=== PATIENT | female | born 1955 | race Caucasian/White ===

== ENCOUNTER 2019-09-06 09:42 | Inpatient (IN) ==
[2019-09-06] MEDS ORDERED: *HR* Midazolam HCl 2 MG/2 ML VIAL ONE (09:46)
[2019-09-06] MEDS ORDERED: *HR* FentaNYL (PF) 100 MCG/2 ML VIAL ONE (09:46)
[2019-09-06] MEDS ORDERED: *HR* Propofol 200 MG/20 ML VIAL IVP ONE (09:47)
[2019-09-06] MEDS ORDERED: *HR* Succinylcholine 200 MG/10 ML VIAL IVP ONE (09:48)
[2019-09-06] MEDS ORDERED: *HR* Rocuronium Bromide 50 MG/5 ML VIAL ONE (09:48)
[2019-09-06] MEDS ORDERED: Ondansetron 4 MG/2 ML VIAL ONE (09:48)
[2019-09-06] MEDS ORDERED: Lidocaine -MPF 2% 2 ML VIAL ONE (09:48)
[2019-09-06] MEDS ORDERED: CeFAZolin Syr 2,000MG/20 ML 2,000 MG/20 ML SYRINGE IVPB ONE (10:01)
[2019-09-06] MEDS ORDERED: Albuterol 2.5 MG/3 ML NEBULIZER IH PRN ×2 (10:01→10:17)
[2019-09-06] MEDS ORDERED: Ringers Solution, Lactated 1,000 ML IVC SCH ×2 (10:15→11:15)
[2019-09-06] MEDS ORDERED: Lidocaine HCL 4 ML Topical Solution (Laryng-O-Jet Kit Sterile Pak) TP ONE (10:22)
[2019-09-06] MEDS ORDERED: *HR* OxyCODONE Immed Rel 5 MG TABLET PO PRN ×2 (11:02→15:13)
[2019-09-06] MEDS ORDERED: Ondansetron 4 MG/2 ML VIAL IVP ONE (11:02)
[2019-09-06] MEDS ORDERED: Acetaminophen IV 1,000 MG/100 ML INFUS..BTL IVPB ONE (11:02)
[2019-09-06] MEDS ORDERED: *HR* HYDROmorphone PF 0.5 MG/0.5 ML SYRINGE IVP PRN (11:02)
[2019-09-06] MEDS ORDERED: Heparin 1,000 UNITS/500 mL 500 ML ONE (11:10)
[2019-09-06] MEDS ORDERED: Vancomycin 1,000 MG, Sodium Chloride IRRigation 1,000 ML IR ONE (11:15)
[2019-09-06] MEDS ORDERED: EPHEDrine 50 MG/ML VIAL ONE (12:18)
[2019-09-06] MEDS ORDERED: Neostigmine Methylsulfate 3 MG/3 ML SYRINGE ONE (13:42)
[2019-09-06] MEDS ORDERED: *HR* Labetalol 20 MG/4 ML SYRINGE IVP PRN (15:13)
[2019-09-06] MEDS ORDERED: *HR* Dextrose 50 % in Water (Syg) 50 ML SYRINGE IVP PRN (15:13)
[2019-09-06] MEDS ORDERED: Ondansetron 4 MG/2 ML VIAL IVP PRN (15:13)
[2019-09-06] MEDS ORDERED: D5% in Water 1,000 ML IVC PRN (15:13)
[2019-09-06] MEDS ORDERED: *HR* OxyCODONE/APAP 5/325 TABLET PO PRN (15:13)
[2019-09-06] MEDS ORDERED: 0.9 % Sodium Chloride 1,000 ML IVC SCH (15:13)
[2019-09-06] MEDS ORDERED: Acetaminophen 325 MG TABLET PO PRN (15:13)
[2019-09-06] MEDS ORDERED: Naloxone 0.4 MG/ML INJ IVP PRN (15:13)
[2019-09-06] MEDS ORDERED: Dextrose Gel 15 GM/37.5 ML TUBE PO PRN ×2 (15:13)
[2019-09-06] MEDS: Insulin LISPRO 300 UNITS/3 ML VIAL SQ SCH (16:30)
[2019-09-06] MEDS: *HR* Metoprolol 5 MG/5 ML VIAL IVP SCH ×2 (16:35→16:49)
[2019-09-06] MEDS: ceFAZolin 2,000 MG in 0.9 % Sodium Chloride 100 ML IVPB SCH (16:36)
[2019-09-06] MEDS ORDERED: Gabapentin 400 MG CAPSULE PO SCH (21:00)
[2019-09-06] MEDS ORDERED: Insulin LISPRO 300 UNITS/3 ML VIAL SQ SCH (21:00)
[2019-09-07] MEDS: *HR* Metoprolol 5 MG/5 ML VIAL IVP SCH ×2 (00:48→06:38)
[2019-09-07] MEDS: ceFAZolin 2,000 MG in 0.9 % Sodium Chloride 100 ML IVPB SCH (00:48)
[2019-09-07 04:32] LABS: BUN/Creatinine Ratio 14 (6-26); Blood Urea Nitrogen 9 mg/dL (8-23); Calcium 8.5 mg/dL (8.6-10.3); Carbon Dioxide 23 mEq/L (23-29); Chloride 110 mEq/L (98-107); Glucose 110 mg/dL (70-105); Osmolality,Calculated 285 (280-300); Potassium 4.6 mEq/L (3.5-5.1); Sodium 138 mEq/L (136-145); eGFR For African Americans > 60 (> 60); eGFR For Non-African Americans > 60 (> 60)
[2019-09-07] MEDS ORDERED: *HR* Heparin 5,000 UNIT/ML VIAL SQ SCH ×2 (06:00)
[2019-09-07 07:47] VITALS: BP 161/89
[2019-09-07 08:34] LABS: Basophils % 0.4 %; Eosinophils # 0.1 K/mcL (0.0-0.6); Eosinophils % 1.7 %; Hematocrit 36.5 % (35.3-44.9); Hemoglobin 11.9 g/dL (11.5-15.4); Immature Granulocytes % 0.3 % (0-4); Lymphocytes # 1.7 K/mcL (0.6-4.6); Lymphocytes % 23.9 %; Mean Corpuscular HGB Conc 32.6 g/dL (31.6-35.5); Mean Corpuscular Hemoglobin 32.2 pg (28.0-33.3); Mean Corpuscular Volume 98.9 fL (83.0-100.0); Mean Platelet Volume 10.2 fL (9.4-12.4); Monocytes # 0.6 K/mcL (0.0-1.3); Neutrophils # 4.6 K/mcL (1.6-8.9); Platelet Count 291 K/mcL (140-400); Red Blood Count 3.69 M/mcL (3.82-4.97); Red Cell Distribution Width 14.3 % (11.5-14.5); Segmented Neutrophils % 64.7 %; White Blood Count 7.1 K/mcL (4.3-11.1)
[2019-09-07] MEDS ORDERED: lisinopriL 5 MG TABLET PO SCH (09:00)
[2019-09-07] MEDS: Insulin LISPRO 300 UNITS/3 ML VIAL SQ SCH (09:19)
== END 2019-09-07 09:57 | disposition home or self-care (01) | DRG 254 ==
LOC: SAMDAY 09:42 → 2NNU 15:05
PROVIDERS: ADMIT Surgery; ATTEND Surgery

== ENCOUNTER 2020-06-19 06:16 | Inpatient (IN) ==
[2020-06-19] MEDS ORDERED: CeFAZolin Syr 2,000MG/20 ML 2,000 MG/20 ML SYRINGE IVPB ONE (06:42)
[2020-06-19] MEDS ORDERED: Ringers Solution, Lactated 1,000 ML IVC SCH (06:45)
[2020-06-19] MEDS ORDERED: *HR* FentaNYL (PF) 100 MCG/2 ML VIAL ONE ×2 (06:55→09:06)
[2020-06-19] MEDS ORDERED: Heparin 1,000 UNITS/500 mL 500 ML ONE (06:55)
[2020-06-19] MEDS ORDERED: *HR* Propofol 200 MG/20 ML VIAL IVP ONE (06:56)
[2020-06-19] MEDS ORDERED: *HR* Rocuronium Bromide 50 MG/5 ML VIAL ONE (06:57)
[2020-06-19] MEDS ORDERED: Dexamethasone 4 MG/ML VIAL ONE (06:57)
[2020-06-19] MEDS ORDERED: Lidocaine -MPF 4% 5 ML AMPUL ONE (06:57)
[2020-06-19] MEDS ORDERED: Lidocaine -MPF 2% 2 ML VIAL ONE (06:57)
[2020-06-19] MEDS ORDERED: Ondansetron 4 MG/2 ML VIAL ONE (06:57)
[2020-06-19] MEDS ORDERED: *HR* Succinylcholine 200 MG/10 ML VIAL IVP ONE (06:57)
[2020-06-19] MEDS ORDERED: *HR* OxyCODONE Immed Rel 5 MG TABLET PO PRN ×2 (07:00→11:56)
[2020-06-19] MEDS ORDERED: *HR* HYDROmorphone 2 MG TABLET PO PRN (07:00)
[2020-06-19] MEDS ORDERED: Famotidine 20 MG/2 ML VIAL IVP ONE (07:00)
[2020-06-19] MEDS ORDERED: Pregabalin 75 MG CAPSULE PO ONE (07:00)
[2020-06-19] MEDS ORDERED: *HR* HYDROmorphone (PF) 1 MG/ML SYRINGE IVP PRN (07:00)
[2020-06-19] MEDS ORDERED: Acetaminophen IV 1,000 MG/100 ML BAG IVPB ONE (07:00)
[2020-06-19] MEDS ORDERED: *HR* Labetalol 20 MG/4 ML SYRINGE IVP PRN ×2 (07:00→11:56)
[2020-06-19] MEDS ORDERED: Heparin 1,000 UNITS/500 mL 1,500 ML ONE (07:07)
[2020-06-19] MEDS ORDERED: *HR* Midazolam HCl 2 MG/2 ML VIAL ONE (07:35)
[2020-06-19] MEDS ORDERED: Vancomycin 1,000 MG, Sodium Chloride IRRigation 1,000 ML IR ONE (07:45)
[2020-06-19] MEDS ORDERED: Vancomycin 1,000 MG VIAL ONE (08:22)
[2020-06-19] MEDS ORDERED: *HR* Phenylephrine 10 MG/ML VIAL ONE (08:36)
[2020-06-19] MEDS ORDERED: EPHEDrine 50 MG/ML VIAL ONE (08:49)
[2020-06-19] MEDS ORDERED: *HR* Heparin 5,000 UNIT/ML VIAL ONE (09:23)
[2020-06-19] MEDS ORDERED: Sugammadex Sodium 200 MG/2 ML VIAL IV ONE (10:29)
[2020-06-19] MEDS ORDERED: *HR* HYDROMORPHONE 2 MG/ML VIAL ONE (10:40)
[2020-06-19] MEDS ORDERED: D5% in Water 1,000 ML IVC PRN (11:56)
[2020-06-19] MEDS ORDERED: Ondansetron 4 MG/2 ML VIAL IVP PRN (11:56)
[2020-06-19] MEDS ORDERED: Dextrose Gel 15 GM/37.5 ML TUBE PO PRN ×2 (11:56)
[2020-06-19] MEDS ORDERED: *HR* OxyCODONE/APAP 5/325 TABLET PO PRN (11:56)
[2020-06-19] MEDS ORDERED: *HR* Dextrose 50 % in Water (Vial) 50 ML VIAL IVP PRN (11:56)
[2020-06-19] MEDS ORDERED: Acetaminophen 325 MG TABLET PO PRN (11:56)
[2020-06-19] MEDS ORDERED: 0.9 % Sodium Chloride 1,000 ML IVC SCH (11:56)
[2020-06-19] MEDS ORDERED: Naloxone 0.4 MG/ML INJ IVP PRN (11:56)
[2020-06-19] MEDS: *HR* Metoprolol 5 MG/5 ML VIAL IVP SCH ×2 (12:58→16:57)
[2020-06-19] MEDS: lisinopriL 5 MG TABLET PO SCH (12:58)
[2020-06-19] MEDS: Insulin LISPRO 300 UNITS/3 ML VIAL SQ SCH ×2 (13:15→16:47)
[2020-06-19] MEDS ORDERED: CeFAZolin 2 GM/120 ML BAG IVPB SCH (16:00)
[2020-06-19] MEDS ORDERED: Gabapentin 400 MG CAPSULE PO SCH (21:00)
[2020-06-19] MEDS ORDERED: Insulin LISPRO 300 UNITS/3 ML VIAL SQ SCH (21:00)
[2020-06-20 00:43] LABS: Basophils % 0.1 %; Eosinophils % 0.1 %; Hematocrit 31.4 % (35.3-44.9); Hemoglobin 10.2 g/dL (11.5-15.4); Immature Granulocytes % 0.3 % (0-4); Lymphocytes # 1.2 K/mcL (0.6-4.6); Lymphocytes % 9.4 %; Mean Corpuscular HGB Conc 32.5 g/dL (31.6-35.5); Mean Corpuscular Hemoglobin 31.5 pg (28.0-33.3); Mean Corpuscular Volume 96.9 fL (83.0-100.0); Mean Platelet Volume 10.2 fL (9.4-12.4); Monocytes # 0.8 K/mcL (0.0-1.3); Monocytes % 6.2 %; Neutrophils # 10.9 K/mcL (1.6-8.9); Platelet Count 312 K/mcL (140-400); Red Blood Count 3.24 M/mcL (3.82-4.97); Red Cell Distribution Width 16.2 % (11.5-14.5); Segmented Neutrophils % 83.9 %
[2020-06-20] MEDS: *HR* Metoprolol 5 MG/5 ML VIAL IVP SCH ×2 (00:47→06:00)
[2020-06-20 00:53] LABS: BUN/Creatinine Ratio 14 (6-26); Blood Urea Nitrogen 9 mg/dL (8-23); Calcium 8.3 mg/dL (8.6-10.3); Carbon Dioxide 24 mEq/L (23-29); Chloride 106 mEq/L (98-107); Glucose 207 mg/dL (70-105); Osmolality,Calculated 287 (280-300); Potassium 4.2 mEq/L (3.5-5.1); Sodium 136 mEq/L (136-145); eGFR For African Americans > 60 (> 60); eGFR For Non-African Americans > 60 (> 60)
[2020-06-20] MEDS ORDERED: *HR* Heparin 5,000 UNIT/ML VIAL SQ SCH ×2 (06:00)
[2020-06-20] MEDS: lisinopriL 5 MG TABLET PO SCH (08:23)
[2020-06-20] MEDS: Insulin LISPRO 300 UNITS/3 ML VIAL SQ SCH (08:23)
[2020-06-20 08:37] VITALS: BP 107/80
== END 2020-06-20 11:18 | disposition home or self-care (01) | DRG 254 ==
LOC: SAMDAY 06:16 → 2NNU 11:56
PROVIDERS: ADMIT Surgery; ATTEND Surgery

== ENCOUNTER 2021-06-22 18:11 | Observation (INO) ==
[2021-06-22] MEDS ORDERED: Isovue-370 500 ML BOTTLE IVP ONE (21:39)
[2021-06-22 22:14] LABS: Basophils # 0.1 K/mcL (0.0-0.2); Basophils % 0.4 %; Eosinophils # 0.3 K/mcL (0.0-0.6); Eosinophils % 2.5 %; Hematocrit 37.6 % (35.3-44.9); Hemoglobin 11.9 g/dL (11.5-15.4); Immature Granulocytes % 0.3 % (0-4); Lymphocytes # 4.5 K/mcL (0.6-4.6); Lymphocytes % 39.6 %; Mean Corpuscular HGB Conc 31.6 g/dL (31.6-35.5); Mean Corpuscular Hemoglobin 30.1 pg (28.0-33.3); Mean Corpuscular Volume 95.2 fL (83.0-100.0); Mean Platelet Volume 9.9 fL (9.4-12.4); Monocytes # 0.8 K/mcL (0.0-1.3); Neutrophils # 5.7 K/mcL (1.6-8.9); Platelet Count 424 K/mcL (140-400); Red Blood Count 3.95 M/mcL (3.82-4.97); Red Cell Distribution Width 16.1 % (11.5-14.5); Segmented Neutrophils % 50.2 %; White Blood Count 11.3 K/mcL (4.3-11.1)
[2021-06-22 22:26] LABS: INR 0.9; Prothrombin Time 10.5 Seconds (9.4-12.1)
[2021-06-22 22:28] LABS: Activated Partial Thrombo Time 31.9 Seconds (26.0-36.0)
[2021-06-22 22:32] LABS: Alanine Aminotransferase 11 Units/L (7-52); Albumin 4.2 g/dL (3.5-5.7); Albumin/Globulin Ratio 1.8 (1.1-2.2); Alkaline Phosphatase 66 Units/L (34-104); Aspartate Amino Transferase 11 Units/L (13-39); BUN/Creatinine Ratio 14 (6-26); Bilirubin,Indirect 0.2 mg/dL (0.0-1.0); Bilirubin,Total 0.2 mg/dL (0.3-1.0); Blood Urea Nitrogen 10 mg/dL (8-23); Calcium 9.5 mg/dL (8.6-10.3); Carbon Dioxide 24 mEq/L (23-29); Chloride 105 mEq/L (98-107); Globulin 2.4 g/dL (2.4-3.5); Glucose 123 mg/dL (70-105); Osmolality,Calculated 288 (280-300); Potassium 4.2 mEq/L (3.5-5.1); Sodium 139 mEq/L (136-145); Total Protein 6.6 g/dL (6.4-8.9); eGFR For African Americans > 60 (> 60); eGFR For Non-African Americans > 60 (> 60)
[2021-06-22 22:34] LABS: Troponin I < 0.03 ng/mL (< 0.04)
[2021-06-22 22:51] LABS: Bilirubin,Urine Negative (Negative); Blood,Urine Negative (Negative); Clarity,Urine Clear (Clear); Color,Urine Yellow (Yellow); Glucose,Urine (UA) Normal (Normal); Ketones,Urine Negative (Negative); Leukocyte Esterase,Urine Negative (Negative); Nitrite,Urine Negative (Negative); PH,Urine 6.5 pH Units (5.0-8.0); Protein,Urine Negative (Neg-Trace); Specific Gravity,Urine 1.025 (1.010-1.025); Urobilinogen,Urine Normal (Normal)
[2021-06-22 23:05] LABS: Bacteria,Urine Few per hpf (None-Few); Mucus,Urine Few per lpf (None-Few); RBC,Urine 0-3 per hpf (0-3); Squamous Epithelial Cell,Urine Few per hpf (None-Few); WBC,Urine 0-3 per hpf (0-3)
[2021-06-23] MEDS ORDERED: Melatonin 3 MG TABLET PO PRN (02:23)
[2021-06-23] MEDS ORDERED: Naloxone 0.4 MG/ML INJ IVP PRN (02:23)
[2021-06-23] MEDS ORDERED: *HR* Promethazine 25 MG/ML VIAL IM PRN (02:23)
[2021-06-23] MEDS ORDERED: Ondansetron 4 MG/2 ML VIAL IVP PRN (02:23)
[2021-06-23] MEDS ORDERED: Acetaminophen 325 MG TABLET PO PRN (02:23)
[2021-06-23] MEDS ORDERED: Perflutren Lipid Microsphere 1.3 ML in 0.9 % Sodium Chloride 8.7 ML IVP PRN (02:25)
[2021-06-23] MEDS ORDERED: Gadolinium Contrast Agent (WT Based) IV PRN (02:25)
[2021-06-23 06:41] LABS: Basophils # 0.1 K/mcL (0.0-0.2); Basophils % 0.6 %; Eosinophils # 0.2 K/mcL (0.0-0.6); Eosinophils % 2.7 %; Hematocrit 36.5 % (35.3-44.9); Hemoglobin 11.7 g/dL (11.5-15.4); Immature Granulocytes % 0.5 % (0-4); Lymphocytes # 3.4 K/mcL (0.6-4.6); Lymphocytes % 37.8 %; Mean Corpuscular HGB Conc 32.1 g/dL (31.6-35.5); Mean Corpuscular Hemoglobin 30.7 pg (28.0-33.3); Mean Corpuscular Volume 95.8 fL (83.0-100.0); Mean Platelet Volume 10.6 fL (9.4-12.4); Monocytes # 0.7 K/mcL (0.0-1.3); Monocytes % 7.9 %; Neutrophils # 4.5 K/mcL (1.6-8.9); Platelet Count 361 K/mcL (140-400); Red Blood Count 3.81 M/mcL (3.82-4.97); Red Cell Distribution Width 16.2 % (11.5-14.5); Segmented Neutrophils % 50.5 %; White Blood Count 8.9 K/mcL (4.3-11.1)
[2021-06-23 06:50] LABS: INR 0.9; Prothrombin Time 10.2 Seconds (9.4-12.1)
[2021-06-23 07:26] LABS: BUN/Creatinine Ratio 14 (6-26); Blood Urea Nitrogen 10 mg/dL (8-23); Calcium 9.2 mg/dL (8.6-10.3); Carbon Dioxide 24 mEq/L (23-29); Chloride 105 mEq/L (98-107); Chol/HDL Ratio 4.4 (0-4.9); Cholesterol 173 mg/dL (< 200); Glucose 143 mg/dL (70-105); HDL Cholesterol 39 mg/dL (40-59); LDL Cholesterol,Calculated 90 mg/dL (< 100); Osmolality,Calculated 286 (280-300); Potassium 4.5 mEq/L (3.5-5.1); Sodium 137 mEq/L (136-145); Triglycerides 221 mg/dL (< 150); eGFR For African Americans > 60 (> 60); eGFR For Non-African Americans > 60 (> 60)
[2021-06-23 07:29] VITALS: BP 128/82; PULSE 77; TEMP 97.7; O2SAT 97
[2021-06-23 08:35] LABS: Estimated Average Glucose 148 mg/dl; Hemoglobin A1C 6.8 %
[2021-06-23] MEDS ORDERED: Aspirin Enteric Coated 81 MG Tablet PO SCH (09:00)
== END 2021-06-23 14:30 | disposition home or self-care (01) ==
LOC: 3BNU 18:11 → EMEROOARM 18:11 → SUATTDRO 06-23 01:20 → 3BNU 06-23 02:14
PROVIDERS: ADMIT Internal Medicine; ATTEND Internal Medicine

== ENCOUNTER 2022-02-24 09:23 | Inpatient (IN) ==
[2022-02-24] MEDS ORDERED: *HR* FentaNYL (PF) 100 MCG/2 ML VIAL ONE (09:42)
[2022-02-24] MEDS ORDERED: *HR* Propofol 200 MG/20 ML VIAL IVP ONE (09:42)
[2022-02-24] MEDS ORDERED: *HR* Midazolam HCl 2 MG/2 ML VIAL ONE ×2 (09:42→15:47)
[2022-02-24] MEDS ORDERED: Lidocaine -MPF 2% 5 ML VIAL ONE (09:45)
[2022-02-24] MEDS ORDERED: *HR* Rocuronium Bromide 50 MG/5 ML VIAL ONE ×2 (09:45→12:19)
[2022-02-24] MEDS ORDERED: *HR* Phenylephrine 10 MG/ML VIAL ONE (09:48)
[2022-02-24] MEDS ORDERED: *HR* Remifentanil 2 MG VIAL IVP ONE (09:53)
[2022-02-24] MEDS ORDERED: CeFAZolin Syr 2,000MG/20 ML 2,000 MG/20 ML SYRINGE IVPB ONE (09:59)
[2022-02-24] MEDS ORDERED: Ringers Solution, Lactated 1,000 ML IVC SCH (10:00)
[2022-02-24] MEDS ORDERED: Ondansetron 4 MG/2 ML VIAL IVP PRN ×2 (10:09→17:04)
[2022-02-24] MEDS ORDERED: Promethazine 6.25 MG in Water for inj. (sterile) 20 ML IVPB PRN (10:09)
[2022-02-24] MEDS ORDERED: Bupivacaine-MPF 0.25% 10 ML VIAL ONE (10:13)
[2022-02-24] MEDS ORDERED: Protamine Sulfate 50 MG/5 ML VIAL IVP ONE (10:13)
[2022-02-24] MEDS ORDERED: Heparin 1,000 UNITS/500 mL 500 ML ONE ×2 (10:13→10:44)
[2022-02-24] MEDS ORDERED: Vancomycin 1,000 MG, Sodium Chloride IRRigation 1,000 ML IR ONE (11:15)
[2022-02-24] MEDS ORDERED: *HR* Heparin 5,000 UNIT/ML VIAL ONE (13:05)
[2022-02-24] MEDS ORDERED: Sugammadex Sodium 200 MG/2 ML VIAL IV ONE (14:27)
[2022-02-24] MEDS: *HR* FentaNYL (PF) 100 MCG/2 ML VIAL IVP PRN ×2 (15:21→15:28)
[2022-02-24] MEDS ORDERED: Pregabalin 75 MG CAPSULE PO ONE ×2 (15:46→16:30)
[2022-02-24] MEDS ORDERED: *HR* HYDROmorphone (PF) 1 MG/ML SYRINGE ONE (15:47)
[2022-02-24] MEDS ORDERED: Acetaminophen IV 1,000 MG/100 ML BAG IVPB ONE (15:48)
[2022-02-24] MEDS ORDERED: *HR* Midazolam HCl 2 MG/2 ML VIAL IVP ONE (15:53)
[2022-02-24] MEDS ORDERED: Acetaminophen IV 1,000 MG/100 ML BAG IVPB PRN (15:54)
[2022-02-24] MEDS: *HR* HYDROmorphone (PF) 1 MG/ML SYRINGE IVP PRN ×3 (15:57→16:31)
[2022-02-24] MEDS ORDERED: Acetaminophen 325 MG TABLET PO PRN (17:04)
[2022-02-24] MEDS ORDERED: *HR* OxyCODONE/APAP 5/325 TABLET PO PRN (17:04)
[2022-02-24] MEDS ORDERED: *HR* OxyCODONE Immed Rel 5 MG TABLET PO PRN (17:04)
[2022-02-24] MEDS ORDERED: 0.9 % Sodium Chloride 1,000 ML IVC SCH (17:04)
[2022-02-24] MEDS ORDERED: D5% in Water 1,000 ML IVC PRN (17:04)
[2022-02-24] MEDS ORDERED: *HR* Labetalol 20 MG/4 ML SYRINGE IVP PRN (17:04)
[2022-02-24] MEDS ORDERED: Naloxone 0.4 MG/ML INJ IVP PRN (17:04)
[2022-02-24] MEDS ORDERED: Dextrose Gel 15 GM/37.5 ML TUBE PO PRN ×2 (17:04)
[2022-02-24] MEDS ORDERED: *HR* Dextrose 50 % in Water (Syg) 50 ML SYRINGE IVP PRN (17:04)
[2022-02-24] MEDS: Insulin LISPRO 300 UNITS/3 ML VIAL SUBQ SCH (17:37)
[2022-02-24] MEDS: cilostazoL 100 MG TABLET PO SCH (19:50)
[2022-02-24] MEDS: CeFAZolin 2 GM/120 ML BAG IVPB SCH (19:51)
[2022-02-24] MEDS: *HR* Metoprolol 5 MG/5 ML VIAL IVP SCH ×2 (19:59→23:42)
[2022-02-24] MEDS ORDERED: Insulin LISPRO 300 UNITS/3 ML VIAL SUBQ SCH (21:00)
[2022-02-24] MEDS ORDERED: Gabapentin 400 MG CAPSULE PO SCH (21:00)
[2022-02-25] MEDS: CeFAZolin 2 GM/120 ML BAG IVPB SCH (00:26)
[2022-02-25 05:22] LABS: Basophils % 0.3 %; Eosinophils # 0.1 K/mcL (0.0-0.6); Eosinophils % 1.7 %; Hematocrit 29.6 % (35.3-44.9); Hemoglobin 9.4 g/dL (11.5-15.4); Immature Granulocytes % 0.2 % (0-4); Lymphocytes # 1.9 K/mcL (0.6-4.6); Lymphocytes % 31.9 %; Mean Corpuscular HGB Conc 31.8 g/dL (31.6-35.5); Mean Corpuscular Hemoglobin 30.2 pg (28.0-33.3); Mean Corpuscular Volume 95.2 fL (83.0-100.0); Mean Platelet Volume 10.3 fL (9.4-12.4); Monocytes # 0.5 K/mcL (0.0-1.3); Monocytes % 8.5 %; Neutrophils # 3.4 K/mcL (1.6-8.9); Platelet Count 289 K/mcL (140-400); Red Blood Count 3.11 M/mcL (3.82-4.97); Red Cell Distribution Width 15.9 % (11.5-14.5); Segmented Neutrophils % 57.4 %; White Blood Count 5.9 K/mcL (4.3-11.1)
[2022-02-25] MEDS ORDERED: *HR* Heparin 5,000 UNIT/ML VIAL SQ SCH ×2 (06:00)
[2022-02-25] MEDS: *HR* Metoprolol 5 MG/5 ML VIAL IVP SCH (06:17)
[2022-02-25 06:23] LABS: Calcium 8.3 mg/dL (8.6-10.3); Potassium 4.2 mEq/L (3.5-5.1)
[2022-02-25] MEDS: Insulin LISPRO 300 UNITS/3 ML VIAL SUBQ SCH (06:23)
[2022-02-25 07:41] VITALS: BP 128/59; TEMP 97.5
[2022-02-25 08:07] VITALS: PULSE 73; O2SAT 91
[2022-02-25] MEDS: cilostazoL 100 MG TABLET PO SCH (08:47)
[2022-02-25] MEDS ORDERED: lisinopriL 5 MG TABLET PO SCH (09:00)
[2022-02-25] MEDS ORDERED: Aspirin Enteric Coated 81 MG Tablet PO SCH (09:00)
== END 2022-02-25 09:32 | disposition home or self-care (01) | DRG 254 ==
LOC: SAMDAY 09:23 → 2NNU 17:02
PROVIDERS: ADMIT Surgery; ATTEND Surgery

== ENCOUNTER 2022-03-12 08:17 | Inpatient (IN) ==
[2022-03-12] MEDS ORDERED: CeFAZolin Syr 2,000MG/20 ML 2,000 MG/20 ML SYRINGE IVPB ONE (08:33)
[2022-03-12] MEDS ORDERED: Ondansetron 4 MG/2 ML VIAL IVP PRN ×2 (08:34→15:26)
[2022-03-12] MEDS ORDERED: Acetaminophen IV 1,000 MG/100 ML BAG IVPB PRN (08:34)
[2022-03-12] MEDS ORDERED: Ringers Solution, Lactated 1,000 ML IVC SCH (08:45)
[2022-03-12] MEDS ORDERED: Aspirin 81 MG TAB.CHEW PO ONE (09:05)
[2022-03-12] MEDS ORDERED: Ipratropium/Albuterol Neb 3 ML IH ONE (09:22)
[2022-03-12] MEDS ORDERED: Vancomycin 1,000 MG, Sodium Chloride IRRigation 1,000 ML IR ONE (10:15)
[2022-03-12] MEDS ORDERED: Lidocaine 1% 20 ML MDV ONE (10:20)
[2022-03-12] MEDS ORDERED: Bupivacaine-MPF 0.25% 10 ML VIAL ONE (10:20)
[2022-03-12] MEDS ORDERED: Lidocaine 1% 0 ML ONE (10:21)
[2022-03-12] MEDS ORDERED: Heparin 1,000 UNITS/500 mL 1,000 ML ONE (10:27)
[2022-03-12] MEDS ORDERED: Vancomycin 1,000 MG VIAL ONE (10:27)
[2022-03-12] MEDS ORDERED: Ondansetron 4 MG/2 ML VIAL ONE (10:39)
[2022-03-12] MEDS ORDERED: *HR* FentaNYL (PF) 100 MCG/2 ML VIAL ONE (10:39)
[2022-03-12] MEDS ORDERED: *HR* Propofol 200 MG/20 ML VIAL IVP ONE (10:39)
[2022-03-12] MEDS ORDERED: Lidocaine -MPF 2% 5 ML VIAL ONE (10:39)
[2022-03-12] MEDS ORDERED: *HR* Phenylephrine 10 MG/ML VIAL ONE (10:43)
[2022-03-12] MEDS ORDERED: *HR* Rocuronium Bromide 50 MG/5 ML VIAL ONE ×2 (10:43→12:44)
[2022-03-12] MEDS ORDERED: NiCARdipine 2.5 MG/10 ML Syringe IVPB ONE ×2 (10:46→14:45)
[2022-03-12] MEDS ORDERED: *HR* Midazolam HCl 2 MG/2 ML VIAL ONE (10:47)
[2022-03-12] MEDS ORDERED: EPHEDrine 50 MG/ML VIAL ONE (11:25)
[2022-03-12] MEDS ORDERED: *HR* HYDROMORPHONE 2 MG/ML VIAL ONE (13:00)
[2022-03-12] MEDS ORDERED: *HR* Heparin 5,000 UNIT/ML VIAL ONE (13:08)
[2022-03-12] MEDS ORDERED: Sugammadex Sodium 200 MG/2 ML VIAL IV ONE (13:38)
[2022-03-12] MEDS: *HR* HYDROmorphone PF 0.5 MG/0.5 ML SYRINGE IVP PRN ×2 (14:45→14:55)
[2022-03-12] MEDS ORDERED: Dextrose Gel 15 GM/37.5 ML TUBE PO PRN ×2 (15:26)
[2022-03-12] MEDS ORDERED: Acetaminophen 325 MG TABLET PO PRN (15:26)
[2022-03-12] MEDS ORDERED: *HR* Dextrose 50 % in Water (Syg) 50 ML SYRINGE IVP PRN (15:26)
[2022-03-12] MEDS ORDERED: *HR* Labetalol 20 MG/4 ML SYRINGE IVP PRN (15:26)
[2022-03-12] MEDS ORDERED: Naloxone 0.4 MG/ML INJ IVP PRN (15:26)
[2022-03-12] MEDS ORDERED: 0.9 % Sodium Chloride 1,000 ML IVC SCH (15:26)
[2022-03-12] MEDS ORDERED: D5% in Water 1,000 ML IVC PRN (15:26)
[2022-03-12] MEDS ORDERED: *HR* OxyCODONE/APAP 5/325 TABLET PO PRN (15:26)
[2022-03-12] MEDS: Insulin LISPRO 300 UNITS/3 ML VIAL SUBQ SCH (16:41)
[2022-03-12] MEDS: *HR* OxyCODONE Immed Rel 5 MG TABLET PO PRN (17:12)
[2022-03-12] MEDS: *HR* Metoprolol 5 MG/5 ML VIAL IVP SCH (17:14)
[2022-03-12] MEDS: CeFAZolin 2 GM/120 ML BAG IVPB SCH (20:49)
[2022-03-12] MEDS ORDERED: Insulin LISPRO 300 UNITS/3 ML VIAL SUBQ SCH (21:00)
[2022-03-13] MEDS: *HR* Metoprolol 5 MG/5 ML VIAL IVP SCH ×3 (00:02→12:28)
[2022-03-13] MEDS: *HR* OxyCODONE Immed Rel 5 MG TABLET PO PRN (00:02)
[2022-03-13] MEDS: CeFAZolin 2 GM/120 ML BAG IVPB SCH (04:00)
[2022-03-13 04:42] LABS: Basophils % 0.1 %; Hematocrit 25.9 % (35.3-44.9); Hemoglobin 8.2 g/dL (11.5-15.4); Immature Granulocytes % 0.4 % (0-4); Lymphocytes # 1.2 K/mcL (0.6-4.6); Mean Corpuscular HGB Conc 31.7 g/dL (31.6-35.5); Mean Corpuscular Hemoglobin 30.7 pg (28.0-33.3); Mean Platelet Volume 11.9 fL (9.4-12.4); Monocytes # 0.6 K/mcL (0.0-1.3); Monocytes % 4.6 %; Neutrophils # 11.5 K/mcL (1.6-8.9); Platelet Count 257 K/mcL (140-400); Red Blood Count 2.67 M/mcL (3.82-4.97); Red Cell Distribution Width 16.4 % (11.5-14.5); Segmented Neutrophils % 85.9 %; White Blood Count 13.4 K/mcL (4.3-11.1)
[2022-03-13 04:56] LABS: BUN/Creatinine Ratio 17 (6-26); Blood Urea Nitrogen 12 mg/dL (8-23); Calcium 7.9 mg/dL (8.6-10.3); Carbon Dioxide 23 mEq/L (23-29); Chloride 105 mEq/L (98-107); Glucose 144 mg/dL (70-105); Osmolality,Calculated 286 (280-300); Sodium 137 mEq/L (136-145)
[2022-03-13] MEDS ORDERED: *HR* Heparin 5,000 UNIT/ML VIAL SQ SCH (06:00)
[2022-03-13 06:49] VITALS: TEMP 97.9
[2022-03-13] MEDS: Insulin LISPRO 300 UNITS/3 ML VIAL SUBQ SCH ×2 (07:16→12:03)
[2022-03-13] MEDS ORDERED: Aspirin Enteric Coated 81 MG Tablet PO SCH (09:00)
[2022-03-13] MEDS ORDERED: Gabapentin 400 MG CAPSULE PO SCH (09:00)
[2022-03-13] MEDS ORDERED: lisinopriL 5 MG TABLET PO SCH (09:00)
[2022-03-13 12:27] VITALS: O2SAT 100
[2022-03-13 14:06] VITALS: BP 125/58; PULSE 67
== END 2022-03-13 16:32 | disposition home or self-care (01) | DRG 254 ==
LOC: SAMDAY 08:17 → 2NNU 15:45
PROVIDERS: ADMIT Surgery; ATTEND Surgery

== ENCOUNTER 2022-05-03 10:54 | Inpatient (IN) ==
[2022-05-03] MEDS ORDERED: CeFAZolin Syr 2,000MG/20 ML 2,000 MG/20 ML SYRINGE IVPB ONE (11:10)
[2022-05-03] MEDS ORDERED: *HR* Propofol 200 MG/20 ML VIAL IVP ONE (11:16)
[2022-05-03] MEDS ORDERED: *HR* FentaNYL (PF) 100 MCG/2 ML VIAL ONE ×2 (11:16→14:39)
[2022-05-03] MEDS ORDERED: *HR* Rocuronium Bromide 50 MG/5 ML VIAL ONE ×3 (11:23→15:27)
[2022-05-03] MEDS ORDERED: Lidocaine -MPF 2% 2 ML VIAL ONE (11:23)
[2022-05-03] MEDS ORDERED: Ringers Solution, Lactated 1,000 ML IVC ONE (11:30)
[2022-05-03] MEDS ORDERED: Acetaminophen IV 1,000 MG/100 ML BAG IVPB ONE (11:30)
[2022-05-03] MEDS ORDERED: Famotidine 20 MG/2 ML VIAL IVP ONE (11:30)
[2022-05-03] MEDS ORDERED: Naloxone 0.4 MG/ML INJ IVP PRN ×2 (12:23→19:23)
[2022-05-03] MEDS ORDERED: Ipratropium/Albuterol Neb 3 ML IH ONE (12:23)
[2022-05-03] MEDS ORDERED: Ondansetron 4 MG/2 ML VIAL IVP PRN ×2 (12:23→19:23)
[2022-05-03] MEDS ORDERED: *HR* Midazolam HCl 2 MG/2 ML VIAL ONE (12:39)
[2022-05-03] MEDS ORDERED: Vancomycin 1,000 MG, Sodium Chloride IRRigation 1,000 ML IR ONE (12:55)
[2022-05-03] MEDS ORDERED: Heparin 1,000 UNITS/500 mL 500 ML ONE ×2 (13:07→17:54)
[2022-05-03] MEDS ORDERED: EPHEDrine sulfate 50 MG/10 ML VIAL IVP ONE (14:08)
[2022-05-03] MEDS ORDERED: Ondansetron 4 MG/2 ML VIAL ONE (14:52)
[2022-05-03] MEDS ORDERED: *HR* Labetalol 20 MG/4 ML SYRINGE IVP ONE (15:02)
[2022-05-03] MEDS ORDERED: *HR* Heparin 5,000 UNIT/ML VIAL ONE ×2 (15:22→16:22)
[2022-05-03] MEDS ORDERED: *HR* HYDROMORPHONE 2 MG/ML VIAL ONE (15:24)
[2022-05-03] MEDS ORDERED: Bupivacaine-MPF 0.25% 10 ML VIAL ONE (17:53)
[2022-05-03] MEDS: *HR* HYDROmorphone PF 0.5 MG/0.5 ML SYRINGE IVP PRN ×2 (18:06→18:17)
[2022-05-03] MEDS ORDERED: Acetaminophen 325 MG TABLET PO PRN (19:23)
[2022-05-03] MEDS ORDERED: *HR* Labetalol 20 MG/4 ML SYRINGE IVP PRN (19:23)
[2022-05-03] MEDS ORDERED: D5% in Water 1,000 ML IVC PRN (19:23)
[2022-05-03] MEDS ORDERED: Dextrose Gel 15 GM/37.5 ML TUBE PO PRN ×2 (19:23)
[2022-05-03] MEDS ORDERED: *HR* Dextrose 50 % in Water (Syg) 50 ML SYRINGE IVP PRN (19:23)
[2022-05-03] MEDS ORDERED: 0.9 % Sodium Chloride 1,000 ML IVC SCH (19:23)
[2022-05-03] MEDS ORDERED: *HR* OxyCODONE/APAP 5/325 TABLET PO PRN (19:23)
[2022-05-03] MEDS: *HR* Metoprolol 5 MG/5 ML VIAL IVP SCH ×2 (19:46→23:18)
[2022-05-03] MEDS: *HR* OxyCODONE Immed Rel 5 MG TABLET PO PRN (19:46)
[2022-05-03] MEDS ORDERED: Insulin LISPRO 300 UNITS/3 ML VIAL SUBQ SCH (21:00)
[2022-05-03] MEDS: CeFAZolin 2 GM/120 ML BAG IVPB SCH (23:17)
[2022-05-04] MEDS: *HR* Metoprolol 5 MG/5 ML VIAL IVP SCH (05:18)
[2022-05-04] MEDS: *HR* OxyCODONE Immed Rel 5 MG TABLET PO PRN ×2 (05:23→11:54)
[2022-05-04] MEDS: CeFAZolin 2 GM/120 ML BAG IVPB SCH (05:26)
[2022-05-04] MEDS ORDERED: *HR* Heparin 5,000 UNIT/ML VIAL SQ SCH ×2 (06:00)
[2022-05-04 07:21] VITALS: BP 103/50; PULSE 73; TEMP 98.5; O2SAT 100
[2022-05-04] MEDS: Insulin LISPRO 300 UNITS/3 ML VIAL SUBQ SCH ×2 (07:47→12:09)
[2022-05-04 08:33] LABS: Calcium 8.6 mg/dL (8.6-10.3); Potassium 5.2 mEq/L (3.5-5.1)
[2022-05-04 08:35] LABS: Basophils % 0.2 %; Hematocrit 24.8 % (35.3-44.9); Lymphocytes # 1.7 K/mcL (0.6-4.6); Lymphocytes % 13.8 %; Mean Corpuscular HGB Conc 30.6 g/dL (31.6-35.5); Mean Corpuscular Hemoglobin 28.4 pg (28.0-33.3); Mean Corpuscular Volume 92.5 fL (83.0-100.0); Mean Platelet Volume 11.6 fL (9.4-12.4); Monocytes % 8.4 %; Neutrophils # 9.4 K/mcL (1.6-8.9); Platelet Count 228 K/mcL (140-400); Red Blood Count 2.68 M/mcL (3.82-4.97); Red Cell Distribution Width 16.5 % (11.5-14.5); Segmented Neutrophils % 76.6 %
[2022-05-04 08:47] LABS: Hemoglobin 7.6 g/dL (11.5-15.4); White Blood Count 12.2 K/mcL (4.3-11.1)
[2022-05-04 08:49] LABS: Anisocytosis 1+ (Not Present); Platelet Estimate Normal (Normal)
[2022-05-04] MEDS ORDERED: Gabapentin 400 MG CAPSULE PO SCH (09:00)
[2022-05-04] MEDS ORDERED: Aspirin Enteric Coated 81 MG Tablet PO SCH (09:00)
[2022-05-04] MEDS ORDERED: lisinopriL 5 MG TABLET PO SCH (09:00)
== END 2022-05-04 16:41 | disposition home health service (06) | DRG 254 ==
LOC: SAMDAY 10:54 → 2NNU 11:00
PROVIDERS: ADMIT Surgery; ATTEND Surgery